=== PATIENT | female | born 1935 | race Caucasian/White ===

== ENCOUNTER 2021-04-29 14:44 | Emergency (ER) | payer MEDICARE ==
[2021-04-29 14:51] VITALS: TEMP 98.3
--- NOTE | 2021-04-29 15:09 | ED ---
SOB HPI - General Chief Complaint: Shortness of Breath Stated Complaint: SOB,L Side Pain Time Seen by Provider: 04/29/21 14:54 Source: patient Mode of arrival: ambulatory Limitations: no limitations - History of Present Illness Initial Comments: Anali de leon 85-year-old female presents to the emergency department today for evaluation of left-sided rib pain and shortness of breath. Patient reports approximately 2 weeks ago she had a syncopal episode and fell on her left side. At that time she did have a CAT scan of her brain ordered by her [facility] there is no acute findings. Patient reports she's had persistent pain in her left chest and over the past couple days feels short of breath and has pain with deep breathing. She is concerned she may have broken a rib. No chest pain palpitations diaphoresis or lightheadedness. - Related Data Home Medications Medication Instructions Recorded Confirmed Alendronate Sodium [Fosamax] 70 mg PO CARVER 04/29/21 04/29/21 Amitriptyline HCl [Elavil] 20 mg PO TID 04/29/21 04/29/21 Atenolol [Tenormin] 50 mg PO HS 04/29/21 04/29/21 Fluticasone Nasal [place] [Flonase 1 spr EA NOSTRIL DAILY PRN 04/29/21 04/29/21 Nasal [place]] Levothyroxine Sodium [Synthroid] 37.5 mcg PO CARVER 04/29/21 04/29/21 Levothyroxine Sodium [Synthroid] 75 mcg PO MOTUWETHFRSA 04/29/21 04/29/21 Omeprazole 20 mg PO DAILY PRN 04/29/21 04/29/21 methocarbamoL [Robaxin] 500 mg PO HS 04/29/21 04/29/21 Previous Rx's Medication Instructions Recorded Lidocaine 5% Patch [Lidoderm] 1 patch TOPICAL DAILY #30 patch 04/29/21 Allergies Allergy/AdvReac Type Severity Reaction Status Date / Time No Known Allergies Allergy Verified 04/29/21 15:20 Review of Systems ROS Statement: Those systems with pertinent positive or pertinent negative responses have been documented in the HPI. ROS Other: All systems not noted in ROS Statement are negative. Past Medical History Additional Past Medical History / Comment(s): hypothryoid. fast heart beat History of Any Multi-Drug Resistant Organisms: None Reported Past Surgical History: Hysterectomy Additional Past Surgical History / Comment(s): broken arm, collar bone Past Psychological History: No Psychological Hx Reported Smoking Status: Never smoker Past Alcohol Use History: None Reported Past Drug Use History: None Reported General Exam - General Exam Comments Initial Comments: Physical Exam GENERAL: Patient is well-developed and well-nourished. Patient is nontoxic and well- hydrated and is in no distress. HENT: Normocephalic, Atraumatic. EYES: PERRL, EOMI PULMONARY: Decreased effort, decreased breath sounds at the left base CARDIOVASCULAR: There is a regular rate and rhythm without any murmurs gallops or rubs. ABDOMEN: Soft and nontender with normal bowel sounds. SKIN: Skin is clear with no lesions or rashes and otherwise unremarkable. : Deferred NEUROLOGIC: Patient is alert and oriented x3. Moving all extremities spontaneously MUSCULOSKELETAL: Normal extremities with adequate strength and full range of motion. No lower extremity swelling or edema. No calf tenderness. PSYCHIATRIC: Normal psychiatric evaluation. Limitations: no limitations Course Vital Signs 04/29/21 04/29/21 04/29/21 14:46 15:03 15:30 Temperature 98.3 F Pulse Rate 75 70 Respiratory 18 22 20 Rate Blood Pressure 148/81 O2 Sat by Pulse 92 L 90 L Oximetry 04/29/21 04/29/21 16:00 16:30 Temperature Pulse Rate 69 76 Respiratory 21 16 Rate Blood Pressure 113/73 161/77 O2 Sat by Pulse 94 L 96 Oximetry Medical Decision Making - Medical Decision Making Patient was seen and evaluated history is obtained from patient, very pleasant 85-year-old female with a fall 2 weeks ago with persistent left-sided chest pain pleuritic in nature concern for fracture, x-rays were obtained and confirmed possible fracture given the patient's history and physical exam I do suspect the patient has a nondisplaced rib fracture resulting in splinting respirations. Patient was given a incentive spirometer discussed with the importance of deep breathing. Patient's pain was treated with Lidoderm patches. Patient was advised to take Tylenol and anti-inflammatories [id number]. Return parameters were discussed patient was discharged home in stable condition. - Lab Data Result diagrams: 04/29/21 15:02 04/29/21 15:02 Lab Results 04/29/21 04/29/21 04/29/21 Range/Units 15:02 15:02 15:02 WBC 10.4 (3.8-10.6) k/uL RBC 4.73 (3.80-5.40) m/uL Hgb 14.5 (11.4-16.0) gm/dL Hct 44.6 (34.0-46.0) % MCV 94.2 (80.0-100.0) fL MCH 30.7 (25.0-35.0) pg MCHC 32.6 (31.0-37.0) g/dL RDW 14.3 (11.5-15.5) % Plt Count 439 (150-450) k/uL MPV 7.8 Neutrophils % 77 % Lymphocytes % 11 % Monocytes % 6 % Eosinophils % 3 % Basophils % 1 % Neutrophils # 8.0 H (1.3-7.7) k/uL Lymphocytes # 1.2 (1.0-4.8) k/uL Monocytes # 0.6 (0-1.0) k/uL Eosinophils # 0.3 (0-0.7) k/uL Basophils # 0.1 (0-0.2) k/uL Hypochromasia Slight PT 9.8 (9.0-12.0) sec INR 0.9 (<1.2) APTT 23.0 (22.0-30.0) sec Sodium 138 (137-145) mmol/L Potassium 4.2 (3.5-5.1) mmol/L Chloride 103 (98-107) mmol/L Carbon Dioxide 26 (22-30) mmol/L Anion Gap 9 mmol/L BUN 20 H (7-17) mg/dL Creatinine 0.42 L (0.52-1.04) mg/dL Est GFR (CKD-EPI)AfAm >90 (>60 ml/min/1.73 sqM) Est GFR (CKD-EPI)NonAf >90 (>60 ml/min/1.73 sqM) Glucose 109 H (74-99) mg/dL Calcium 9.7 (8.4-10.2) mg/dL Total Bilirubin 0.7 (0.2-1.3) mg/dL AST 37 H (14-36) U/L ALT 19 (4-34) U/L Alkaline Phosphatase 175 H (38-126) U/L Troponin I (0.000-0.034) ng/mL Total Protein 7.0 (6.3-8.2) g/dL Albumin 4.1 (3.5-5.0) g/dL 04/29/21 Range/Units 15:02 WBC (3.8-10.6) k/uL RBC (3.80-5.40) m/uL Hgb (11.4-16.0) gm/dL Hct (34.0-46.0) % MCV (80.0-100.0) fL MCH (25.0-35.0) pg MCHC (31.0-37.0) g/dL RDW (11.5-15.5) % Plt Count (150-450) k/uL MPV Neutrophils % % Lymphocytes % % Monocytes % % Eosinophils % % Basophils % % Neutrophils # (1.3-7.7) k/uL Lymphocytes # (1.0-4.8) k/uL Monocytes # (0-1.0) k/uL Eosinophils # (0-0.7) k/uL Basophils # (0-0.2) k/uL Hypochromasia PT (9.0-12.0) sec INR (<1.2) APTT (22.0-30.0) sec Sodium (137-145) mmol/L Potassium (3.5-5.1) mmol/L Chloride (98-107) mmol/L Carbon Dioxide (22-30) mmol/L Anion Gap mmol/L BUN (7-17) mg/dL Creatinine (0.52-1.04) mg/dL Est GFR (CKD-EPI)AfAm (>60 ml/min/1.73 sqM) Est GFR (CKD-EPI)NonAf (>60 ml/min/1.73 sqM) Glucose (74-99) mg/dL Calcium (8.4-10.2) mg/dL Total Bilirubin (0.2-1.3) mg/dL AST (14-36) U/L ALT (4-34) U/L Alkaline Phosphatase (38-126) U/L Troponin I <0.012 (0.000-0.034) ng/mL Total Protein (6.3-8.2) g/dL Albumin (3.5-5.0) g/dL - EKG Data -: EKG Interpreted by Me EKG Comments: EKG was obtained due to shortness of breath, EKG obtained at 1502, rate is 72 rhythm is sinus, normal axis, normal intervals, IL 174, QRS 70 QTC [address] elevations or depressions there is no evidence of ischemia or infarction. Disposition Clinical Impression: Left rib fracture Disposition: HOME SELF-CARE Condition: Stable Prescriptions: Lidocaine 5% Patch [Lidoderm] 1 patch TOPICAL DAILY #30 patch Is patient prescribed a controlled substance at d/c from ED?: No Referrals: Onesimo Morataya MD [Primary Care Provider] - 1-2 days
[2021-04-29 15:55] LABS: Basophils # (A) 0.1 k/uL (0-0.2); Basophils % (A) 1 %; Eosinophils # (A) 0.3 k/uL (0-0.7); Eosinophils % (A) 3 %; HCT 44.6 % (34.0-46.0); HGB 14.5 gm/dL (11.4-16.0); Hypochromasia Slight; Lymphocytes # (A) 1.2 k/uL (1.0-4.8); Lymphocytes % (A) 11 %; MCH 30.7 pg (25.0-35.0); MCHC 32.6 g/dL (31.0-37.0); MCV 94.2 fL (80.0-100.0); Mean Platelet Volume 7.8; Monocytes # (A) 0.6 k/uL (0-1.0); Monocytes % (A) 6 %; Neutrophils % (A) 77 %; Platelet Count 439 k/uL (150-450); RBC 4.73 m/uL (3.80-5.40); RDW 14.3 % (11.5-15.5); WBC 10.4 k/uL (3.8-10.6)
[2021-04-29 16:07] LABS: INR 0.9 (<1.2); Prothrombin Time 9.8 sec (9.0-12.0)
[2021-04-29 16:08] LABS: ALT 19 U/L (4-34); AST 37 U/L (14-36); African American GFR (CKD) >90 (>60 ml/min/1.73 sqM); Albumin 4.1 g/dL (3.5-5.0); Alkaline Phosphatase 175 U/L (38-126); Anion Gap 9 mmol/L; Blood Urea Nitrogen 20 mg/dL (7-17); Calcium 9.7 mg/dL (8.4-10.2); Carbon Dioxide 26 mmol/L (22-30); Chloride 103 mmol/L (98-107); Glucose 109 mg/dL (74-99); Non-African American GFR(CKD) >90 (>60 ml/min/1.73 sqM); Sodium 138 mmol/L (137-145); Total Bilirubin 0.7 mg/dL (0.2-1.3)
[2021-04-29 16:11] LABS: Potassium 4.2 mmol/L (3.5-5.1)
--- NOTE | 2021-04-29 16:17 | XR ---
Chest x-ray with left RIBS HISTORY: Pain and shortness of breath, trauma Frontal view of the chest, 4 views of the left ribs submitted There is no evident pneumothorax. There is some blunting the left costophrenic angle. There is a willard ed scoliotic curvature to the spine. Contour abnormality is noted at the left fifth rib associated florentino cency. Mineralization is reduced. Basilar atelectatic changes are also present on the right. Heart ma y be enlarged although the patient is rotated. IMPRESSION: Suspect a nondisplaced rib fracture, there may be left pleural effusion and associated at electasis. Is a marked scoliosis. Bone scan may be of benefit.
[2021-04-29] MEDS ORDERED: LIDOCAINE 5% PATCH TOPICAL STA (16:42)
[2021-04-29 17:00] VITALS: BP 161/77; PULSE 76; RESP 16
== END 2021-04-29 17:09 | disposition home or self-care (01) ==
LOC: EC 14:44
DX: S22.32XA Fracture of one rib, left side, initial encounter for closed fracture (principal); E03.9 Hypothyroidism, unspecified; Z79.890 Hormone replacement therapy; Z79.899 Other long term (current) drug therapy; W18.39XA Other fall on same level, initial encounter
CPT/HCPCS: 36415; 80053; 84484; 85025; 85610; 85730; 93005; 99284

== ENCOUNTER 2021-07-26 18:26 | Emergency (ER) | payer MEDICARE ==
[2021-07-26] MEDS ORDERED: DEXAMETHASONE SOD PHOSPHATE 10 MG/ML 1 ML VIAL IM STA (20:02)
--- NOTE | 2021-07-26 20:29 | XR ---
EXAMINATION TYPE: XR chest 2V DATE OF EXAM: 07/26/2021 COMPARISON: 04/29/2021 HISTORY: Congestion TECHNIQUE: FINDINGS: There is some linear infiltrate and atelectasis at both lung bases. Heart size is normal. T here is no heart failure. There are no hilar masses. Bony thorax is intact. IMPRESSION: There is some mild infiltrate and atelectasis at the lung bases slightly increased compar ed to old exam.
--- NOTE | 2021-07-26 20:55 | ED ---
URI HPI - General Chief Complaint: Upper Respiratory Infection Stated Complaint: Fatigue/Covid exposure Time Seen by Provider: 07/26/21 20:01 Source: patient, RN notes reviewed Mode of arrival: ambulatory Limitations: no limitations - History of Present Illness Initial Comments: Patient is an 86-year-old female that presents to the emergency department complaining of loss of sense of taste smell and fatigue for the past 6 days. She notes that she came to the emergency room to get evaluated for possible Covid. She was otherwise well-appearing. She denied any other symptoms or issues. She denied chest pain shortness of breath headache nausea vomiting diarrhea constipation fever fatigue chills. - Related Data Home Medications Medication Instructions Recorded Confirmed Alendronate Sodium [Fosamax] 70 mg PO CARVER 04/29/21 04/29/21 Amitriptyline HCl [Elavil] 20 mg PO TID 04/29/21 04/29/21 Atenolol [Tenormin] 50 mg PO HS 04/29/21 04/29/21 Fluticasone Nasal [place] [Flonase 1 spr EA NOSTRIL DAILY PRN 04/29/21 04/29/21 Nasal [place]] Levothyroxine Sodium [Synthroid] 37.5 mcg PO CARVER 04/29/21 04/29/21 Levothyroxine Sodium [Synthroid] 75 mcg PO MOTUWETHFRSA 04/29/21 04/29/21 Omeprazole 20 mg PO DAILY PRN 04/29/21 04/29/21 methocarbamoL [Robaxin] 500 mg PO HS 04/29/21 04/29/21 Previous Rx's Medication Instructions Recorded Lidocaine 5% Patch [Lidoderm] 1 patch TOPICAL DAILY #30 patch 04/29/21 Allergies Allergy/AdvReac Type Severity Reaction Status Date / Time No Known Allergies Allergy Verified 07/26/21 19:50 Review of Systems ROS Statement: Those systems with pertinent positive or pertinent negative responses have been documented in the HPI. ROS Other: All systems not noted in ROS Statement are negative. Past Medical History Past Medical History: Thyroid Disorder Additional Past Medical History / Comment(s): hypothryoid. fast heart beat History of Any Multi-Drug Resistant Organisms: None Reported Past Surgical History: Hysterectomy Additional Past Surgical History / Comment(s): broken arm, collar bone Past Psychological History: No Psychological Hx Reported Smoking Status: Never smoker Past Alcohol Use History: None Reported Past Drug Use History: None Reported General Exam Limitations: no limitations General appearance: alert, in no apparent distress Head exam: Present: atraumatic, normocephalic, normal inspection Eye exam: Present: normal appearance, PERRL, EOMI. Absent: scleral icterus, conjunctival injection, periorbital swelling ENT exam: Present: normal exam, mucous membranes moist Neck exam: Present: normal inspection Respiratory exam: Present: normal lung sounds bilaterally. Absent: respiratory distress, wheezes, rales, rhonchi, stridor Cardiovascular Exam: Present: regular rate, normal rhythm, normal heart sounds. Absent: systolic murmur, diastolic murmur, rubs, gallop, clicks Extremities exam: Present: normal inspection, full ROM, normal capillary refill. Absent: tenderness, pedal edema, joint swelling, calf tenderness Neurological exam: Present: alert, oriented X3 Psychiatric exam: Present: normal affect, normal mood Skin exam: Present: warm, dry, intact, normal color. Absent: rash Course Vital Signs 07/26/21 19:50 Temperature 98.2 F Pulse Rate 93 Respiratory 16 Rate Blood Pressure 132/73 O2 Sat by Pulse 94 L Oximetry Medical Decision Making - Medical Decision Making 86-year-old female with loss of sense of taste and smell and fatigue for 6 days. Covid test, chest x-ray ordered. Covid test positive. Chest x-ray shows bilateral patchy infiltrates in the lower lungs. 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 Desmond discharge home after infusion. Case discussed with Dr. Briscoe. - Lab Data Lab Results 07/26/21 Range/Units 20:05 Coronavirus (PCR) Detected A (Not Detectd) - Radiology Data Radiology results: report reviewed, image reviewed Chest x-ray: There is some mild infiltrate and atelectasis at the lung bases slightly increased compared to old exam. Disposition Clinical Impression: COVID Disposition: HOME SELF-CARE Condition: Stable Instructions (If sedation given, give patient instructions): Coronavirus Disease 2019 (COVID-19) Additional Instructions: Please return to the Emergency Department if symptoms worsen or any other concerns. Follow-up with primary care 1-2 days. Quarantine per CDC guidelines. Take Tylenol and Motrin as needed for any fevers. Is patient prescribed a controlled substance at d/c from ED?: No Referrals: Onesimo Morataya MD [Primary Care Provider] - 1-2 days Time of Disposition: 20:54
[2021-07-26] MEDS ORDERED: BAMLANIVIMAB (EUA) 700 MG, ETESEVIMAB (EUA) 1,400 MG in SODIUM CHLORIDE 0.9% 50 ML IVPB ONE (21:30)
[2021-07-26] MEDS ORDERED: SODIUM CHLORIDE 0.9% 50 ML IVPB ONE (22:00)
[2021-07-26 22:13] VITALS: BP 132/84; PULSE 90; RESP 24; TEMP 98
== END 2021-07-26 22:16 | disposition home or self-care (01) ==
LOC: EC 18:26
DX: U07.1 COVID-19 (principal); E07.9 Disorder of thyroid, unspecified; Z90.710 Acquired absence of both cervix and uterus
CPT/HCPCS: 99283; 96365; 96372; 87635; 71046; J1100; J3490

== ENCOUNTER → 2022-08-13 | Outpatient (CLI) | payer MEDICARE ==
--- NOTE | 2022-08-13 14:35 | BD ---
EXAMINATION TYPE: Axial Bone Density DATE OF EXAM: 08/13/2022 COMPARISON: FIRST DEXA AT [facility] CLINICAL HISTORY: 87 years year old Female. 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 Bone mineral density as measured about the Lumbar spine is: ----- L1-L4(G/cm2): 1.357 T Score Values are as follows: ----- L1: 0.0 ----- L2: 1.8 ----- L3: 1.7 ----- L4: 1.6 ----- L1-L4: 1.5 FIRST DEXA AT [facility] Bone mineral density about the R hip (g/cm2): 0.720 Bone mineral density about the L hip (g/cm2): 0.728 T Score values are as follows: -----R Neck: -2.3 -----L Neck: -2.3 -----R Total: -2.3 -----L Total: -2.2 FRAX%s: The graph provided illustrates a 24.3% chance for a major osteoporotic fx and a 7.5% chance f or the hips probability for fx in 10 years time. IMPRESSION: Osteopenia (T Score between -2.5 and -1). There is slightly increased risk of fracture and the patient may be considered for treatment. Re-Screen 2-5 years. NOTE: T-SCORE=SD OF THE YOUNG ADULT MEAN.
== END | disposition home or self-care (01) ==
LOC: RADBDWWP 13:16
PROVIDERS: ATTEND Family Medicine
DX: M85.89 Other specified disorders of bone density and structure, multiple sites (principal)
CPT/HCPCS: 77080

== ENCOUNTER 2022-09-23 07:52 | Emergency (ER) | payer MEDICARE ==
[2022-09-23] MEDS ORDERED: SODIUM CHLORIDE 0.9% 1,000 ML IV STA (08:13)
[2022-09-23] MEDS ORDERED: ONDANSETRON 4 MG/2 ML VIAL IVP STA ×2 (08:13→09:05)
[2022-09-23] MEDS ORDERED: HYDROmorphone 0.5 MG/0.5 ML SYRINGE IVP STA (08:14)
[2022-09-23 08:29] LABS: Basophils # (A) 0.1 k/uL (0-0.2); Basophils % (A) 1 %; Eosinophils # (A) 0.2 k/uL (0-0.7); Eosinophils % (A) 2 %; HCT 43.3 % (34.0-46.0); Lymphocytes # (A) 1.2 k/uL (1.0-4.8); Lymphocytes % (A) 10 %; MCHC 32.4 g/dL (31.0-37.0); MCV 92.6 fL (80.0-100.0); Mean Platelet Volume 7.8; Monocytes # (A) 0.5 k/uL (0-1.0); Monocytes % (A) 5 %; Neutrophils # (A) 9.4 k/uL (1.3-7.7); Neutrophils % (A) 81 %; Platelet Count 288 k/uL (150-450); RBC 4.67 m/uL (3.80-5.40); RDW 13.5 % (11.5-15.5); WBC 11.6 k/uL (3.8-10.6)
--- NOTE | 2022-09-23 08:38 | ED ---
Abdominal Pain HPI - General Chief Complaint: Abdominal Pain Stated Complaint: L side pain, and back pain Time Seen by Provider: 09/23/22 08:11 Source: patient, family, RN notes reviewed Limitations: no limitations - History of Present Illness Initial Comments: This is a 87-year-old female presents emergency Department with chief complaint left flank pain. Patient states started around 4 AM states that she's had nausea, uncontrolled pain nothing makes it feel better or worse. She has no history kidney stones. Patient states pain does wrap around some no denies any chest pain, shortness breath, fevers, chills denies any noted hematuria or dysuria denies constipation or diarrhea. - Related Data Home Medications Medication Instructions Recorded Confirmed Alendronate Sodium [Fosamax] 70 mg PO CARVER 04/29/21 09/23/22 Amitriptyline HCl [Elavil] 20 mg PO BID 04/29/21 09/23/22 Fluticasone Nasal Gleason [Flonase 1 spr EA NOSTRIL DAILY PRN 04/29/21 09/23/22 Nasal Gleason] Levothyroxine Sodium [Synthroid] 37.5 mcg PO CARVER 04/29/21 09/23/22 Levothyroxine Sodium [Synthroid] 75 mcg PO MOTUWETHFRSA 04/29/21 09/23/22 atenoloL [Tenormin] 50 mg PO HS 04/29/21 09/23/22 methocarbamoL [Robaxin] 500 mg PO HS PRN 04/29/21 09/23/22 Aspirin EC [Ecotrin Low Dose] 81 mg PO DAILY 09/23/22 09/23/22 Celecoxib [CeleBREX] 200 mg PO DAILY 09/23/22 09/23/22 Hydroquinone [Hydroquinone 4%] 1 applic TOPICAL HS PRN 09/23/22 09/23/22 metroNIDAZOLE 0.75% CREAM 1 applic TOPICAL DAILY 09/23/22 09/23/22 [Metrocream 0.75%] Previous Rx's Medication Instructions Recorded Ketorolac [Toradol] 10 mg PO Q8HR #15 tab 09/23/22 Ondansetron Odt [Zofran Odt] 4 mg PO Q8HR PRN #10 tab 09/23/22 Allergies Allergy/AdvReac Type Severity Reaction Status Date / Time No Known Allergies Allergy Verified 09/23/22 11:37 Review of Systems ROS Statement: Those systems with pertinent positive or pertinent negative responses have been documented in the HPI. ROS Other: All systems not noted in ROS Statement are negative. Past Medical History Past Medical History: Thyroid Disorder Additional Past Medical History / Comment(s): hypothryoid. fast heart beat History of Any Multi-Drug Resistant Organisms: None Reported Past Surgical History: Hysterectomy Additional Past Surgical History / Comment(s): broken arm, collar bone Past Psychological History: No Psychological Hx Reported Smoking Status: Never smoker Past Alcohol Use History: None Reported Past Drug Use History: None Reported General Exam Limitations: no limitations General appearance: alert, in no apparent distress Head exam: Present: atraumatic, normocephalic, normal inspection Eye exam: Present: normal appearance, PERRL, EOMI. Absent: scleral icterus, conjunctival injection, periorbital swelling ENT exam: Present: normal exam, mucous membranes moist Neck exam: Present: normal inspection, full ROM. Absent: tenderness, meningismus, lymphadenopathy Respiratory exam: Present: normal lung sounds bilaterally. Absent: respiratory distress, wheezes, rales, rhonchi, stridor Cardiovascular Exam: Present: regular rate, normal rhythm, normal heart sounds. Absent: systolic murmur, diastolic murmur, rubs, gallop, clicks GI/Abdominal exam: Present: soft, tenderness, normal bowel sounds. Absent: distended, guarding, rebound, rigid Back exam: Present: CVA tenderness (L). Absent: CVA tenderness (R) Neurological exam: Present: alert, oriented X3, CN II-XII intact Course Vital Signs 09/23/22 09/23/22 09/23/22 07:56 08:26 09:11 Temperature 97.4 F L Pulse Rate 63 64 65 Respiratory 26 H 18 18 Rate Blood Pressure 175/82 165/79 158/86 O2 Sat by Pulse 97 97 97 Oximetry 09/23/22 10:24 Temperature Pulse Rate 75 Respiratory 18 Rate Blood Pressure 119/72 O2 Sat by Pulse 98 Oximetry Medical Decision Making - Medical Decision Making Was pt. sent in by a medical professional or institution (, PA, LOAN CLERK, urgent care, hospital, or long-term...) When possible be specific @ -No Did you speak to anyone other than the patient for history (EMS, parent, family, police, friend...)? What history was obtained from this source @ -No Did you review nursing and triage notes (agree or disagree)? Why? @ -I reviewed and agree with nursing and triage notes Were old charts reviewed (outside hosp., previous admission, EMS record, old EKG, old radiological studies, urgent care reports/EKG's, long-term records)? Report findings @ -No old charts were reviewed Differential Diagnosis (chest pain, altered mental status, abdominal pain women, abdominal pain men, vaginal bleeding, weakness, fever, dyspnea, syncope, headache, dizziness, GI bleed, back pain, seizure, CVA, palpatations, mental health)? @ -Kidney stone, colitis, diverticulitis, bowel perforation, gastritis, this list is not all-inclusive EKG interpreted by me (3pts min.). @ -EKG sinus rhythm rate of 62 OK 190 QRS 86 QTC is QTC 472/476 X-rays interpreted by me (1pt min.). @ -None done CT interpreted by me (1pt min.). @ -CT of abdomen and pelvis shows evidence of a 4 mm ureteral calculi. ] U/S interpreted by me (1pt. min.). @ -None done What testing was considered but not performed or refused? (CT, X-rays, U/S, labs)? Why? @ -None What meds were considered but not given or refused? Why? @ -None Did you discuss the management of the patient with other professionals (renae lr i.e. , PA, LOAN CLERK, lab, RT, psych nurse, social services technician, dental office assistant, teacher, forward air controller/air officer, case management manager)? Give summary @ -No Was smoking cessation discussed for >3mins.? @ -No Was critical care preformed (if so, how long)? @ -No Were there social determinants of health that impacted care today? How? (Homelessness, low income, unemployed, alcoholism, drug addiction, transportation, low edu. Level, literacy, decrease access to med. care, group home, rehab)? @ -No Was there de-escalation of care discussed even if they declined (Discuss DNR or withdrawal of care, Hospice)? DNR status @ -No What co-morbidities impacted this encounter? (DM, HTN, Smoking, COPD, CAD, Cancer, CVA, ARF, Chemo, Hep., AIDS, mental health diagnosis, sleep apnea, morbid obesity)? @ -None Was patient admitted / discharged? Hospital course, mention meds given and route, prescriptions, significant lab abnormalities, going to OR and other pertinent info. @ -Discharged patient CT shows evidence of-year-old cocci patient's symptoms are improved she was hydrated, given antiemetics and pain control she feels comfortable discharged return parameters were discussed. Undiagnosed new problem with uncertain prognosis? @ -No Drug Therapy requiring intensive monitoring for toxicity (Heparin, Nitro, Insulin, Cardizem)? @ -No Were any procedures done? @ -No Diagnosis/symptom? @ -Ureteral calculi Acute, or Chronic, or Acute on Chronic? @ -Acute Uncomplicated (without systemic symptoms) or Complicated (systemic symptoms)? @ -Uncomplicated Side effects of treatment? @ -No Exacerbation, Progression, or Severe Exacerbation? @ -No Poses a threat to life or bodily function? How? (Chest pain, USA, PR, pneumonia, PE, COPD, DKA, ARF, appy, cholecystitis, CVA, Diverticulitis, Homicidal, Suicidal, threat to staff... and all critical care pts) @ -No - Lab Data Result diagrams: 09/23/22 08:15 09/23/22 08:15 Lab Results 09/23/22 09/23/22 09/23/22 Range/Units 08:15 08:15 08:15 WBC 11.6 H (3.8-10.6) k/uL RBC 4.67 (3.80-5.40) m/uL Hgb 14.0 (11.4-16.0) gm/dL Hct 43.3 (34.0-46.0) % MCV 92.6 (80.0-100.0) fL MCH 30.0 (25.0-35.0) pg MCHC 32.4 (31.0-37.0) g/dL RDW 13.5 (11.5-15.5) % Plt Count 288 (150-450) k/uL MPV 7.8 Neutrophils % 81 % Lymphocytes % 10 % Monocytes % 5 % Eosinophils % 2 % Basophils % 1 % Neutrophils # 9.4 H (1.3-7.7) k/uL Lymphocytes # 1.2 (1.0-4.8) k/uL Monocytes # 0.5 (0-1.0) k/uL Eosinophils # 0.2 (0-0.7) k/uL Basophils # 0.1 (0-0.2) k/uL Sodium 135 L (137-145) mmol/L Potassium 4.7 (3.5-5.1) mmol/L Chloride 101 (98-107) mmol/L Carbon Dioxide 28 (22-30) mmol/L Anion Gap 6 mmol/L BUN 19 H (7-17) mg/dL Creatinine 0.60 (0.52-1.04) mg/dL Est GFR (CKD-EPI)AfAm >90 (>60 ml/min/1.73 sqM) Est GFR (CKD-EPI)NonAf 84 (>60 ml/min/1.73 sqM) Glucose 164 H (74-99) mg/dL Plasma Lactic Acid Mynor 1.9 (0.7-2.0) mmol/L Calcium 9.0 (8.4-10.2) mg/dL Total Bilirubin 0.7 (0.2-1.3) mg/dL AST 27 (14-36) U/L ALT 18 (4-34) U/L Alkaline Phosphatase 91 (38-126) U/L Troponin I (0.000-0.034) ng/mL Total Protein 6.7 (6.3-8.2) g/dL Albumin 4.0 (3.5-5.0) g/dL Amylase 43 (30-110) U/L Lipase 56 (23-300) U/L Urine Color Urine Appearance (Clear) Urine pH (5.0-8.0) Ur Specific [place] (1.001-1.035) Urine Protein (Negative) Urine Glucose (UA) (Negative) Urine Ketones (Negative) Urine Blood (Negative) Urine Nitrite (Negative) Urine Bilirubin (Negative) Urine Urobilinogen (<2.0) mg/dL Ur Leukocyte Esterase (Negative) Urine RBC (0-5) /hpf Urine WBC (0-5) /hpf Ur Squamous Epith Cells (0-4) /hpf Urine Bacteria (None) /hpf Urine Mucus (None) /hpf 09/23/22 09/23/22 Range/Units 08:15 11:10 WBC (3.8-10.6) k/uL RBC (3.80-5.40) m/uL Hgb (11.4-16.0) gm/dL Hct (34.0-46.0) % MCV (80.0-100.0) fL MCH (25.0-35.0) pg MCHC (31.0-37.0) g/dL RDW (11.5-15.5) % Plt Count (150-450) k/uL MPV Neutrophils % % Lymphocytes % % Monocytes % % Eosinophils % % Basophils % % Neutrophils # (1.3-7.7) k/uL Lymphocytes # (1.0-4.8) k/uL Monocytes # (0-1.0) k/uL Eosinophils # (0-0.7) k/uL Basophils # (0-0.2) k/uL Sodium (137-145) mmol/L Potassium (3.5-5.1) mmol/L Chloride (98-107) mmol/L Carbon Dioxide (22-30) mmol/L Anion Gap mmol/L BUN (7-17) mg/dL Creatinine (0.52-1.04) mg/dL Est GFR (CKD-EPI)AfAm (>60 ml/min/1.73 sqM) Est GFR (CKD-EPI)NonAf (>60 ml/min/1.73 sqM) Glucose (74-99) mg/dL Plasma Lactic Acid Mynor (0.7-2.0) mmol/L Calcium (8.4-10.2) mg/dL Total Bilirubin (0.2-1.3) mg/dL AST (14-36) U/L ALT (4-34) U/L Alkaline Phosphatase (38-126) U/L Troponin I <0.012 (0.000-0.034) ng/mL Total Protein (6.3-8.2) g/dL Albumin (3.5-5.0) g/dL Amylase (30-110) U/L Lipase (23-300) U/L Urine Color Light Yellow Urine Appearance Clear (Clear) Urine pH 6.5 (5.0-8.0) Ur Specific [place] 1.011 (1.001-1.035) Urine Protein Negative (Negative) Urine Glucose (UA) Negative (Negative) Urine Ketones 1+ H (Negative) Urine Blood Small H (Negative) Urine Nitrite Negative (Negative) Urine Bilirubin Negative (Negative) Urine Urobilinogen <2.0 (<2.0) mg/dL Ur Leukocyte Esterase Small H (Negative) Urine RBC 7 H (0-5) /hpf Urine WBC 3 (0-5) /hpf Ur Squamous Epith Cells 1 (0-4) /hpf Urine Bacteria Rare H (None) /hpf Urine Mucus Rare H (None) /hpf Disposition Clinical Impression: Ureteral calculus, left Disposition: HOME SELF-CARE Condition: Stable Instructions (If sedation given, give patient instructions): Kidney Stones (ED) Additional Instructions: Please return to the Emergency Department if symptoms worsen or any other concerns. Prescriptions: Ketorolac [Toradol] 10 mg PO Q8HR #15 tab Ondansetron Odt [Zofran Odt] 4 mg PO Q8HR PRN #10 tab PRN Reason: Nausea Is patient prescribed a controlled substance at d/c from ED?: No Referrals: Onesimo Morataya MD [Primary Care Provider] - 1-2 days Anoop Perry MD [STAFF PHYSICIAN] - 1-2 days Time of Disposition: 12:18
[2022-09-23 08:44] LABS: ALT 18 U/L (4-34); AST 27 U/L (14-36); African American GFR (CKD) >90 (>60 ml/min/1.73 sqM); Alkaline Phosphatase 91 U/L (38-126); Amylase 43 U/L (30-110); Anion Gap 6 mmol/L; Blood Urea Nitrogen 19 mg/dL (7-17); Carbon Dioxide 28 mmol/L (22-30); Chloride 101 mmol/L (98-107); Glucose 164 mg/dL (74-99); Lipase 56 U/L (23-300); Non-African American GFR(CKD) 84 (>60 ml/min/1.73 sqM); Potassium 4.7 mmol/L (3.5-5.1); Sodium 135 mmol/L (137-145); Total Bilirubin 0.7 mg/dL (0.2-1.3); Total Protein 6.7 g/dL (6.3-8.2)
--- NOTE | 2022-09-23 09:17 | CT ---
EXAMINATION TYPE: CT abdomen pelvis wo con CT DLP: 679.2 mGycm, Automated exposure control for dose reduction was used. DATE OF EXAM: 09/23/2022 9:02 AM COMPARISON: None CLINICAL INDICATION:Female, 87 years old with history of abdominal pain; pain TECHNIQUE: Axial CT of the abdomen and pelvis. Sagittal and coronal reformats were created on a [employer] workstation. Contrast used: None Oral contrast used: without Oral Contrast FINDINGS: LOWER CHEST: The heart is enlarged for size. Evidence of pulmonary hypertension with pulmonary trunk measuring 3.6 images. Pulmonary vascular congestion noted in the lung bases. ABDOMEN LIVER: Scattered hypodense cysts are noted throughout the liver. GALLBLADDER AND BILE DUCTS: Unremarkable. PANCREAS: Lipomatous pseudohypertrophy changes. SPLEEN: Unremarkable. ADRENAL GLANDS: Unremarkable. KIDNEYS AND URETERS: Mild left hydronephrosis secondary obstructing calculus at the ureterovesicular junction measuring up to 4 mm. No evidence of right obstructive uropathy. No right calculi. Bilateral renal cysts. PELVIS BLADDER: Unremarkable REPRODUCTIVE: Unremarkable. ABDOMEN & PELVIS STOMACH AND BOWEL: Small hiatal hernia is present. No evidence of bowel obstruction. Moderate stool b urden throughout the colon. PERITONEUM/RETROPERITONEUM: No evidence of pneumoperitoneum or free fluid. . VASCULATURE: No evidence of aortic aneurysm. Atherosclerosis of the arterial vasculature. MUSCULOSKELETAL: No acute osseous abnormalities, scoliosis changes throughout the spine with facet arabella int arthropathy and deep degeneration throughout the spine. Degeneration changes of the of the pubic symphysis. LYMPH NODES: No gross evidence for lymphadenopathy. SOFT TISSUE/ABDOMINAL WALL: Intra-abdominal wall herniation superiorly at the level of the ribs which becomes normal intra-abdominal wall after the ribs inferiorly. IMPRESSION: 1. Mild left hydronephrosis secondary obstructing 4 mm calculus at the ureterovesicular junction. 2. Cardiomegaly with pulmonary vascular congestion and evidence of pulmonary hypertension. Correlate with serum BNP.
[2022-09-23] MEDS ORDERED: METOCLOPRAMIDE 5 MG/ML 2 ML VIAL IVP STA (10:26)
[2022-09-23] MEDS ORDERED: SODIUM CHLORIDE 0.9% 500 ML 500 ML IV ONE (11:14)
[2022-09-23] MEDS ORDERED: MECLIZINE 12.5 MG TAB PO STA (11:14)
[2022-09-23 11:26] LABS: Appearance,Urine Clear (Clear); Bacteria,Urine Rare /hpf; Bilirubin,Urine Negative (Negative); Blood,Urine Small (Negative); Color,Urine Light Yellow; Glucose,Urine (UA) Negative (Negative); Ketones,Urine 1+ (Negative); Leukocyte Esterase,Urine Small (Negative); Mucus,Urine Rare /hpf; Nitrite,Urine Negative (Negative); PH, Urine 6.5 (5.0-8.0); Protein,Urine Negative (Negative); RBC,Urine 7 /hpf (0-5); Specific Gravity,Urine 1.011 (1.001-1.035); Squamous Epithelial Cell,Urine 1 /hpf (0-4); Urobilinogen,Urine <2.0 mg/dL (<2.0); WBC,Urine 3 /hpf (0-5)
[2022-09-23] MEDS ORDERED: ACET/COD 300 MG/30 MG STARTER PACK 6 TAB BTL PO STA (12:19)
[2022-09-23 13:01] VITALS: BP 114/66; PULSE 61; RESP 17; TEMP 97.5
== END 2022-09-23 13:01 | disposition home or self-care (01) ==
LOC: EC 07:52
DX: N13.2 Hydronephrosis with renal and ureteral calculous obstruction (principal); E07.9 Disorder of thyroid, unspecified; Z79.890 Hormone replacement therapy
CPT/HCPCS: 36415; 93005; 80053; 82150; 83605; 83690; 84484; 85025; 81001; 74176; 99284; 96374; 96375 ×2; 96376; 96361 ×2; J2765; J2405; J1170

== ENCOUNTER → 2023-02-03 | Outpatient (CLI) | payer MEDICARE ==
--- NOTE | 2023-02-03 14:30 | US ---
EXAMINATION TYPE: US kidneys/renal and bladder DATE OF EXAM: 02/03/2023 COMPARISON: 09/23/2022 CLINICAL INDICATION: Female, 87 years old with history of N28.1 CYST OF KIDNEY, N13.30 HYDRONEPHROSIS ; History of kidney stone and hydronephrosis 09/27 EXAM MEASUREMENTS: Right Kidney: 9.2 x 4.1 x 3.7 cm Left Kidney: 10.9 x 5.2 x 5.1 cm Technical limitations due to large amount of overlying bowel content Right Kidney: anechoic area upper pole = 2.5 x 2.8 x 2.3cm Left Kidney: no evidence of hydronephrosis as visualized Bladder: appears wnl Bilateral Jets seen: yes There is no evidence for hydronephrosis at this point in time. No nephrolithiasis is seen. No savanna s are identified. The urinary bladder is anechoic. Bilateral ureteral jets are seen IMPRESSION: 1. No evidence of obstructive uropathy. 2. Right simple appearing renal cysts.
== END | disposition home or self-care (01) ==
LOC: RADUSWWP 13:08
PROVIDERS: ATTEND Urology
DX: N28.1 Cyst of kidney, acquired (principal); N13.30 Unspecified hydronephrosis; Z87.442 Personal history of urinary calculi
CPT/HCPCS: 76770